=== PATIENT | male | born 1980 | race Caucasian/White ===

== ENCOUNTER 2017-09-19 19:44 | Emergency (ER) | payer OTHER ==
[2017-09-19 20:38] VITALS: BP 150/107; PULSE 87; RESP 16; TEMP 98.6; O2SAT 100
== END 2017-09-19 20:47 | disposition home or self-care (01) | DRG 74 ==
LOC: ED 19:44
DX: M54.10 Radiculopathy, site unspecified (principal)
CPT/HCPCS: 99282

== ENCOUNTER 2018-07-04 06:30 | Emergency (ER) | payer OTHER ==
[2018-07-04 06:45] VITALS: BP 145/96; PULSE 104; RESP 20; TEMP 96.9; O2SAT 98
[2018-07-04] MEDS ORDERED: KETOROLAC TROMETHAMINE 30 MG/ML SOL IM ONE (07:11)
[2018-07-04] MEDS ORDERED: KETOROLAC TROMETHAMINE 30 MG/ML SOL ONE (07:12)
[2018-07-04 07:37] LABS: APPEARANCE,URINE Clear; BILIRUBIN,URINE NEGATIVE (NEGATIVE); COLOR,URINE Light yellow; GLUCOSE, URINE (UA) NEGATIVE (NEGATIVE); KETONES,URINE NEGATIVE (NEGATIVE); LEUKOCYTE ESTERASE ,URINE NEGATIVE (NEGATIVE); NITRATE,URINE NEGATIVE (NEGATIVE); OCCULT BLOOD,URINE NEGATIVE (NEG-TRACE); UROBILINOGEN,URINE 0.2 (0.2-1.0 EU)
[2018-07-04 07:41] LABS: ALBUMIN 4.2 gm/dl (3.4-5.0); BILIRUBIN,TOTAL 0.3 mg/dl (0.2-1.0); CALCIUM 9.5 mg/dl (8.5-10.1); CARBON DIOXIDE 24.9 mEq/L (21-32); CREATININE 1.03 mg/dl (0.80-1.30); POTASSIUM 4.1 mMol/L (3.5-5.1)
[2018-07-04 07:42] LABS: HEMATOCRIT 50 % (39-53); HEMOGLOBIN 16.6 gm/dl (13.5-17.7); MEAN CORPUSCULAR HEMOGLOBIN 31.1 pg (27.0-32.0); MEAN CORPUSCULAR HGB CONC 33.1 gm/dl (32.0-36.0); MEAN CORPUSCULAR VOLUME 94 fL (80-100)
[2018-07-04 07:56] LABS: CRYSTALS NEGATIVE (0-3 AVE/HPF); EPITHELIAL CELLS 0-1 (SQUAMOUS); RBC,URINE 0-1 (0-3AV/HPF); WBC,URINE 0-1 (0-5AV/HPF)
[2018-07-04 07:57] LABS: BACTERIA TRACE (< 1+)
[2018-07-04 08:25] LABS: BAND NEUTROPHILS % (MANUAL) 0 %; BASOPHILS % (MANUAL) 0 % (0-3); EOSINOPHILS % (MANUAL) 1 % (0-9); LYMPHOCYTES % (MANUAL) 35 % (10-50); MONOCYTES % (MANUAL) 6 % (0-12); NEUTROPHILS % (MANUAL) 58 % (37-80); NORMAL RBCS NORMAL RBCS
== END 2018-07-04 08:21 | disposition home or self-care (01) | DRG 552 ==
LOC: ED 06:30
DX: M54.5 Low back pain (principal)
CPT/HCPCS: 80053; 81001; 85007; 85027; 96372; 99282; J1885

== ENCOUNTER 2018-07-14 20:59 | Emergency (ER) | payer OTHER ==
[2018-07-14] MEDS ORDERED: LIDOCAINE 1% W/EPI MPF 30 ML SOL INFIL ONE (21:38)
[2018-07-14] MEDS ORDERED: LIDOCAINE 1% W/EPI MPF 30 ML SOL ONE (21:39)
[2018-07-14] MEDS ORDERED: LIDOCAINE HCL 1% MPF 30 SOL ONE (21:49)
[2018-07-14 22:32] VITALS: RESP 18
[2018-07-14 22:46] VITALS: TEMP 96.4
[2018-07-15 01:41] VITALS: BP 129/88; PULSE 85; O2SAT 98
== END 2018-07-14 22:43 | disposition home or self-care (01) | DRG 156 ==
LOC: ED 20:59
DX: H60.01 Abscess of right external ear (principal)
CPT/HCPCS: 69000; 99282; J2001

== ENCOUNTER 2018-07-17 23:01 | Emergency (ER) | payer OTHER ==
[2018-07-17 23:12] VITALS: BP 146/108; RESP 98; TEMP 97; O2SAT 20
[2018-07-17] MEDS ORDERED: LIDOCAINE HCL 1% MPF 30 SOL ONE (23:18)
[2018-07-17] MEDS ORDERED: LIDOCAINE BUFFERED 1% 50 ML SOL INFIL ONE (23:20)
== END 2018-07-17 23:40 | disposition home or self-care (01) | DRG 156 ==
LOC: ED 23:01
DX: H60.01 Abscess of right external ear (principal)
CPT/HCPCS: 69000; 99282; A6402; J2001

== ENCOUNTER 2018-08-10 17:09 | Emergency (ER) | payer OTHER ==
[2018-08-10] MEDS ORDERED: AMOXIL/CLAVULANATE 400/5 ML PDR PO ONE (17:41)
[2018-08-10] MEDS ORDERED: AMOXIL/CLAVULANATE 400/5 ML PDR ONE (17:56)
[2018-08-10 18:14] VITALS: BP 131/102; PULSE 86; RESP 16; TEMP 97.6; O2SAT 100
== END 2018-08-10 18:05 | disposition home or self-care (01) | DRG 156 ==
LOC: ED 17:09
DX: H60.91 Unspecified otitis externa, right ear (principal); H66.91 Otitis media, unspecified, right ear
CPT/HCPCS: 99282; A9270-GY

== ENCOUNTER 2018-08-21 01:15 | Emergency (ER) | payer OTHER ==
[2018-08-21 01:41] VITALS: BP 156/97; PULSE 91; RESP 18; TEMP 96.3; O2SAT 99
== END 2018-08-21 02:02 | disposition home or self-care (01) | DRG 607 ==
LOC: ED 01:15
DX: R22.9 Localized swelling, mass and lump, unspecified (principal)
CPT/HCPCS: 99282

== ENCOUNTER 2019-01-08 17:56 | Emergency (ER) | payer OTHER ==
[2019-01-08 18:17] VITALS: BP 143/111; PULSE 108; RESP 20; TEMP 97.4; O2SAT 100
[2019-01-08] MEDS ORDERED: KETOROLAC TROMETHAMINE 30 MG/ML SOL IM ONE (19:03)
[2019-01-08] MEDS ORDERED: KETOROLAC TROMETHAMINE 30 MG/ML SOL ONE (19:17)
[2019-01-08 19:25] LABS: APPEARANCE,URINE Clear; BILIRUBIN,URINE 1+ (NEGATIVE); COLOR,URINE Yellow; GLUCOSE, URINE (UA) NEGATIVE (NEGATIVE); KETONES,URINE 1+ (NEGATIVE); LEUKOCYTE ESTERASE ,URINE TRACE (NEGATIVE); NITRATE,URINE NEGATIVE (NEGATIVE); OCCULT BLOOD,URINE NEGATIVE (NEG-TRACE); PH,URINE 5.5; UROBILINOGEN,URINE 0.2 (0.2-1.0 EU)
[2019-01-08 19:44] LABS: BACTERIA 1+ (< 1+); CRYSTALS NEGATIVE (0-3 AVE/HPF); EPITHELIAL CELLS 0-3 (SQUAMOUS); ICTOTEST,URINE NEGATIVE (NEGATIVE); RBC,URINE 0-1 (0-3AV/HPF); WBC,URINE 0-3 (0-5AV/HPF)
== END 2019-01-08 19:54 | disposition home or self-care (01) | DRG 563 ==
LOC: ED 17:56
DX: S39.012A Strain of muscle, fascia and tendon of lower back, initial encounter (principal); M54.5 Low back pain
CPT/HCPCS: 81001; 87088; 96372; 99282; J1885